=== PATIENT | male | born 1965 | race Hispanic/Latino ===

== ENCOUNTER 2021-02-10 09:38 | Outpatient (CLI) | payer OTHER ==
[2021-02-10 12:41] LABS: #Eosinphils 0.1 10x3/uL (0.0-0.5); #Monocytes 0.5 10x3/uL (0.0-1.1); %Basophils 0.3 % (0.0-2.0); %Eosinophils 0.9 % (0.0-6.0); %Lymphocytes 44.8 % (18.0-47.0); %Monocytes 7.1 % (0.0-10.0); %Neutrophils 46.6 % (40.0-75.0); Hemoglobin 15.4 g/dL (13.5-17.5); Mean Corpuscular HGB CONC 33.4 g/dL (32.0-36.0); Mean Corpuscular Hemoglobin 29.7 pg (27.0-33.0); Platelet Count 214 10x3/uL (150-450); RBC Distribution Width 12.8 % (11.5-14.5); Red Blood Cell (RBC) Count 5.18 10x6/uL (4.32-5.72); White Blood Cell (WBC) Count 6.3 10x3/uL (3.5-10.5)
[2021-02-10 13:08] VITALS: BMI 36.5
[2021-02-10 13:11] LABS: Prothrombin Time 10.4 sec (9.5-12.1)
[2021-02-10 13:16] LABS: Anion Gap 15 mmol/L (10-20); BUN (Urea Nitrogen) 15 mg/dL (8.4-25.7); Calc. Creatinine Clearance 127 mL/min (70-130); Calcium 9.4 mg/dL (7.8-10.44); Carbon Dioxide 25 mmol/L (22-29); Chloride 102 mmol/L (98-107); Glucose 99 mg/dL (70-105); Potassium 4.8 mmol/L (3.5-5.1); Sodium 137 mmol/L (136-145)
[2021-02-11 04:17] LABS: SARS-CoV-2 NAA Rapid Test Not Detected (NotDetected)
== END 2021-02-10 09:39 | disposition home or self-care (01) ==
LOC: LABBT 09:38
PROVIDERS: ATTEND Orthopaedic Surgery
DX: Z01.818 Encounter for other preprocedural examination (principal); M17.12 Unilateral primary osteoarthritis, left knee; Z20.822 Contact with and (suspected) exposure to COVID-19
CPT/HCPCS: 80048; 85025; 85610; 87081; 87635; U0002; U0003; U0005

== ENCOUNTER 2021-02-15 05:32 | Inpatient (IN) | payer OTHER ==
[2021-02-15] MEDS ORDERED: Fentanyl 100 MCG/2 ML VIAL ONE ×5 (06:06→09:43)
[2021-02-15] MEDS ORDERED: Tranexamic Acid 1,000 MG/10 ML VIAL ONE (06:08)
[2021-02-15] MEDS ORDERED: Sodium Chloride 0.9% 100 ML ONE (06:08)
[2021-02-15] MEDS ORDERED: Vancomycin 1.5 GRAM/300 ML BAG 1.5 GM in Premix Bag 1 BAG IVPB SCH ×2 (06:15→18:15)
[2021-02-15] MEDS ORDERED: Midazolam HCl 2 mg/2 ml Vial ONE (06:30)
[2021-02-15] MEDS ORDERED: Lidocaine 1% (PF) 30 ML VIAL ONE (06:30)
[2021-02-15] MEDS ORDERED: Bupivacaine 0.25% HCL 30 ML VIAL ONE (06:34)
[2021-02-15] MEDS ORDERED: Bupivacaine PF 0.5% 30 ML VIAL ONE (06:34)
[2021-02-15] MEDS ORDERED: EPINEPHrine 1 MG/ML AMP ONE (06:34)
[2021-02-15] MEDS ORDERED: PROPOFOL 200 MG/20 ML VIAL ONE (07:13)
[2021-02-15] MEDS ORDERED: Ondansetron PF 4 MG/2 ML Vial ONE (07:13)
[2021-02-15] MEDS ORDERED: Ropivacaine 0.5% HCl/PF (150 MG/30 ML VIAL) ONE (07:13)
[2021-02-15] MEDS ORDERED: Ropivacaine 2% HCl/PF (20 MG/10 ML VIAL) ONE (07:13)
[2021-02-15] MEDS ORDERED: Succinylcholine 200 MG/10 ml SYRINGE FS ONE (07:13)
[2021-02-15] MEDS ORDERED: Lidocaine 1% PF 5 ML VIAL ONE (07:13)
[2021-02-15] MEDS ORDERED: Ketorolac Tromethamine 30 MG/ML VIAL ONE (07:13)
[2021-02-15] MEDS ORDERED: Fentanyl 100 MCG/2 ML VIAL IV PRN (07:17)
[2021-02-15] MEDS ORDERED: traMADol HCl 50 MG TAB PO PRN ×2 (07:30)
[2021-02-15] MEDS ORDERED: Ropivacaine HCl/PF 250 ML in Premix Bag 1 BAG NERVE BLCK SCH (07:30)
[2021-02-15] MEDS ORDERED: Zolpidem Tartrate 5 MG TAB PO PRN ×2 (07:30→09:48)
[2021-02-15] MEDS ORDERED: HYDROcodone/Acetaminophen 10/325 mg Tablet PO PRN ×3 (07:30→09:48)
[2021-02-15] MEDS ORDERED: Ondansetron PF 4 MG/2 ML Vial IVP PRN ×2 (07:30→09:48)
[2021-02-15] MEDS ORDERED: Promethazine HCl 25 MG/ML VIAL IM PRN ×3 (07:30→09:48)
[2021-02-15] MEDS ORDERED: Promethazine HCl 25 MG/ML VIAL SLOW IVP PRN (08:16)
[2021-02-15] MEDS ORDERED: Ondansetron HCl/PF 4 MG/2 ML Vial IVP PRN (08:16)
[2021-02-15] MEDS ORDERED: diphenhydrAMINE 25 MG CAP PO PRN (09:48)
[2021-02-15] MEDS ORDERED: Acetaminophen 325 MG TAB PO PRN (09:48)
[2021-02-15] MEDS ORDERED: Fentanyl 100 MCG/2 ML VIAL SLOW IVP PRN ×2 (09:48)
[2021-02-15] MEDS ORDERED: Ketorolac Tromethamine 30 MG/ML VIAL IVP PRN (09:48)
[2021-02-15 11:07] VITALS: BMI 36.6
[2021-02-15] MEDS ORDERED: HumaLOG 300 UNITS/3 ML VIAL SC PRN (12:26)
[2021-02-15] MEDS ORDERED: Dextrose 50% Abboject 50 ML SYRINGE SLOW IVP PRN (12:26)
[2021-02-15] MEDS ORDERED: Dextrose 5% in Water 1,000 ML IV PRN (12:26)
[2021-02-15] MEDS: Ketorolac Tromethamine 30 MG/ML VIAL IVP SCH ×3 (12:35→23:23)
[2021-02-15] MEDS: Sodium Chloride 0.9% 1,000 ML IV SCH ×2 (12:37→21:25)
[2021-02-15] MEDS: CEFAZOLIN 2 GM in Premix Bag 1 BAG IVPB SCH ×2 (14:00→21:25)
[2021-02-15] MEDS: metFORMIN 500 MG TAB PO SCH (17:40)
[2021-02-15] MEDS: traMADol HCl 50 MG TAB PO PRN ×2 (17:40→23:24)
[2021-02-15] MEDS ORDERED: Vancomycin HCl 1.5 GM in Sodium Chloride 0.9% 250 ML 300 ML IVPB SCH (18:00)
[2021-02-15] MEDS: Atorvastatin Calcium 20 MG TAB PO SCH (21:25)
[2021-02-15] MEDS: Aspirin 81 mg Enteric Coated Tablet PO SCH (21:25)
[2021-02-15] MEDS: Senokot S 8.6-50 MG TAB PO SCH (21:25)
[2021-02-15] MEDS: Famotidine 20 MG TAB PO SCH (21:25)
[2021-02-15] MEDS: Ferrous Gluconate 324 MG TAB PO SCH (21:25)
[2021-02-16] MEDS: Ketorolac Tromethamine 30 MG/ML VIAL IVP SCH ×4 (05:24→23:15)
[2021-02-16] MEDS: traMADol HCl 50 MG TAB PO PRN (05:24)
[2021-02-16] MEDS: Sodium Chloride 0.9% 1,000 ML IV SCH ×2 (05:27→18:01)
[2021-02-16 06:16] LABS: Mean Corpuscular HGB CONC 34.1 g/dL (32.0-36.0); Mean Corpuscular Hemoglobin 31.9 pg (27.0-31.0); Mean Corpuscular Volume 93.7 fL (78.0-98.0); Mean Platelet Volume 8.5 fL (7.4-10.4); Platelet Count 186 thou/uL (130-400); Red Blood Cell (RBC) Count 4.09 mill/uL (4.70-6.10); White Blood Cell (WBC) Count 8.1 thou/uL (4.8-10.8)
[2021-02-16] MEDS: Senokot S 8.6-50 MG TAB PO SCH ×2 (08:28→21:14)
[2021-02-16] MEDS: Tamsulosin HCl 0.4 MG CAP PO SCH (08:28)
[2021-02-16] MEDS: Famotidine 20 MG TAB PO SCH ×2 (08:28→21:15)
[2021-02-16] MEDS: Aspirin 81 mg Enteric Coated Tablet PO SCH ×2 (08:28→21:15)
[2021-02-16] MEDS: Lisinopril 5 MG TAB PO SCH (08:28)
[2021-02-16] MEDS: HYDROcodone/Acetaminophen 10/325 mg Tablet PO PRN ×4 (08:29→21:15)
[2021-02-16] MEDS: Multivitamin W/ Minerals 1 TAB PO SCH (08:29)
[2021-02-16] MEDS: metFORMIN 500 MG TAB PO SCH ×2 (08:29→18:06)
[2021-02-16] MEDS: Ferrous Gluconate 324 MG TAB PO SCH ×2 (08:29→21:15)
[2021-02-16] MEDS: Atorvastatin Calcium 20 MG TAB PO SCH (21:15)
[2021-02-17] MEDS: HYDROcodone/Acetaminophen 10/325 mg Tablet PO PRN ×3 (02:01→12:29)
[2021-02-17] MEDS: Sodium Chloride 0.9% 1,000 ML IV SCH (03:15)
[2021-02-17] MEDS: Ketorolac Tromethamine 30 MG/ML VIAL IVP SCH (05:19)
[2021-02-17 07:10] LABS: Hemoglobin 12.1 g/dL (14.0-18.0); Mean Corpuscular HGB CONC 33.7 g/dL (32.0-36.0); Mean Corpuscular Hemoglobin 30.8 pg (27.0-31.0); Mean Corpuscular Volume 91.4 fL (78.0-98.0); Mean Platelet Volume 8.3 fL (7.4-10.4); Platelet Count 169 thou/uL (130-400); RBC Distribution Width 11.8 % (11.5-14.5); Red Blood Cell (RBC) Count 3.93 mill/uL (4.70-6.10); White Blood Cell (WBC) Count 7.2 thou/uL (4.8-10.8)
[2021-02-17] MEDS: Tamsulosin HCl 0.4 MG CAP PO SCH (08:18)
[2021-02-17] MEDS: Aspirin 81 mg Enteric Coated Tablet PO SCH (08:18)
[2021-02-17] MEDS: Senokot S 8.6-50 MG TAB PO SCH (08:18)
[2021-02-17] MEDS: Famotidine 20 MG TAB PO SCH (08:18)
[2021-02-17] MEDS: metFORMIN 500 MG TAB PO SCH (08:19)
[2021-02-17] MEDS: Multivitamin W/ Minerals 1 TAB PO SCH (08:19)
[2021-02-17] MEDS: Lisinopril 5 MG TAB PO SCH (08:19)
[2021-02-17] MEDS: Ferrous Gluconate 324 MG TAB PO SCH (08:19)
[2021-02-17 09:03] LABS: ALT (SGPT) 39 U/L (8-55); AST (SGOT) 30 U/L (5-34); Alkaline Phosphatase 61 U/L (40-110); Anion Gap 11 mmol/L (10-20); BUN (Urea Nitrogen) 7 mg/dL (8.4-25.7); Bilirubin, Total 0.8 mg/dL (0.2-1.2); Calc. Creatinine Clearance 148 mL/min (70-130); Calcium 8.9 mg/dL (7.8-10.44); Carbon Dioxide 29 mmol/L (22-29); Chloride 98 mmol/L (98-107); Globulin 3.3 g/dL (2.4-3.5); Glucose 126 mg/dL (70-105); Potassium 3.8 mmol/L (3.5-5.1); Protein, Total 7.3 g/dL (6.0-8.3); Sodium 134 mmol/L (136-145)
[2021-02-17 11:55] VITALS: BP 156/84; TEMP 98.3
== END 2021-02-17 13:27 | disposition home or self-care (01) | DRG 470 ==
LOC: SDC 05:32 → SURG A 09:48 → EDSTATUS 10:00
PROVIDERS: ADMIT Orthopaedic Surgery; ATTEND Orthopaedic Surgery
PROC: 0SRD0J9 Replacement of Left Knee Joint with Synthetic Substitute, Cemented, Open Approach (ICD-10-PCS; principal; 2021-02-15)
DX: M17.12 Unilateral primary osteoarthritis, left knee (principal); E78.00 Pure hypercholesterolemia, unspecified; E11.9 Type 2 diabetes mellitus without complications; N40.0 Benign prostatic hyperplasia without lower urinary tract symptoms; G47.33 Obstructive sleep apnea (adult) (pediatric); I10 Essential (primary) hypertension
CPT/HCPCS: 36415; 36416; 80053; 85027; C1713; C1776; J0171; J0690; J1885; J2001; J2250; J2405; J2704; J2795; J3010; J3370; J3490; S0020

== ENCOUNTER 2022-03-10 10:36 | Outpatient (CLI) | payer OTHER | END 2022-03-10 10:37 | disposition home or self-care (01) | LOC: BICULT 10:36 | PROVIDERS: ATTEND Nurse Practitioner Family | DX: R74.8 Abnormal levels of other serum enzymes (principal); K76.0 Fatty (change of) liver, not elsewhere classified | CPT/HCPCS: 76705 ==

== ENCOUNTER 2022-08-14 12:23 | Outpatient (CLI) | payer OTHER | END 2022-08-14 12:24 | disposition home or self-care (01) | LOC: ULT 12:23 | PROVIDERS: ATTEND Internal Medicine | DX: R07.9 Chest pain, unspecified (principal); R01.1 Cardiac murmur, unspecified; I10 Essential (primary) hypertension; I08.8 Other rheumatic multiple valve diseases | CPT/HCPCS: 93306 ==

== ENCOUNTER 2022-12-25 08:18 | Outpatient (CLI) | payer OTHER | END 2022-12-25 08:19 | disposition home or self-care (01) | LOC: NM 08:18 | PROVIDERS: ATTEND Internal Medicine | DX: R07.9 Chest pain, unspecified (principal) | CPT/HCPCS: 78452; 93017; A9500 ==

== ENCOUNTER 2024-07-22 08:44 | Outpatient (CLI) | payer BC | END 2024-07-22 08:45 | disposition home or self-care (01) | LOC: BICRAD 08:44 | PROVIDERS: ATTEND Family Medicine | DX: M79.641 Pain in right hand (principal); M79.642 Pain in left hand; M15.9 Polyosteoarthritis, unspecified ==